=== PATIENT | female | born 1985 | race Caucasian/White ===

== ENCOUNTER 2016-12-26 21:27 | Emergency (ER) | payer MEDICAID, OTHER ==
[~2016-12-26 21:27] MED LIST: AMLO5TAB2 PO; CIME200 PO; CIPR500T4 PO; DIME50TA PO; ONDA4TAB7 PO
--- NOTE | 2016-12-26 22:21 | PD ---
HPI Chief Complaint Cramping and spotting Date Seen: Dec 26, 2016 Travel History International Travel<30 Days: No Contact w/Intl Traveler<30Days: No Known Affected Area: No History of Present Illness HPI Patient is a 31-year-old white female she is a at 16 to 17 weeks who presents complaining of cramping since without . She started spotting today. Denies heavy bleeding or leakage of fluid. She says she has felt the baby move. She goes to [facility] for care Para: 1 : 2 History Obstetric History Obstetric History 1 delivery in the past Social History Alcohol Use: No Tobacco Use: No Substance Abuse: No Allergies-Medications (Allergen,Severity, Reaction): Coded Allergies: No Known Allergies (Unverified , 07/15/16) Home Meds Active Scripts Amlodipine 5 Mg Tab5 Mg PO DAILY #30 TAB Ref 0 Prov:Aminah Joshi 12/16/16 Ciprofloxacin Hcl (Cipro)500 Mg [id number] Mg PO BID #20 TAB Prov:Kylah De La Torre MD 07/15/16 Reported Medications Cimetidine 200 mg (Tagamet 200 mg)200 Mg Tab1 Tab PO BID 07/15/16 Dimenhydrinate 50 Mg Tab50 Mg PO BID 05/07/16 Ondansetron (Ondansetron Odt)4 Mg Tab4 Mg PO ONCE #1 TAB 05/07/16 Review of Systems General / Constitutional: No: Fever, Weight Gain, Chills, Other Eyes: No: Diploplia, Blurred Vision, Visual changes, Pain, Photophobia HENT: No: Headaches, Vertigo, Lightheadedness Cardiovascular: No: Irregular Rhythm, Chest Pain or Discomfort, Palpitations, Tachycardia, Syncope, Varicosities, Edema, Cyanosis Respiratory: No: Cough, Short of Breath, Other Gastrointestinal: No: Nausea, Vomiting, Diarrhea Genitourinary: No: Decreased Urinary Output, Oliguria Musculoskeletal: No: Limited ROM, Weakness, Cramping, Edema, Pain Skin: No Rash, No Itching, No Dryness, No Lumps, No Change in Pigmentation, No Change in Nails, No Alopecia, No Lesions Neurologic: No: Weakness, Dizziness, Syncope, Focal Abnormalities, Coordination Problem, Headache, Slurred Speech, Seizures Psychiatric: No: Depression, Suicidal Ideations, Homicidal Ideation Endocrine: No: Heat Intolerance, Cold Intolerance, Polydipsia, Polyuria, Other Physical Exam Narrative GENERAL: Well-nourished, well-developed patient. SKIN: Warm and dry. HEAD: Normocephalic and atraumatic. EYES: No scleral icterus. No injection or drainage. ENT: No nasal drainage noted. Mucous membranes pink. Airway patent. NECK: Supple, trachea midline. No JVD. CARDIOVASCULAR: Regular rate and rhythm without murmurs, gallops, or rubs. RESPIRATORY: Breath sounds equal bilaterally. No accessory muscle use. BREASTS: Bilateral exam showed no masses , no retractions, no nipple discharge. ABDOMEN/GI: Abdomen soft, non-tender, bowel sounds present, no rebound, no guarding Gravid to [16-] weeks size Fundal Height: [-between symphysis and umb] GENITOURINARY: External Genitalia: intact and normal in appearance Vagina was examined with speculum is no blood or infection noted Cervix: [-Closed and thick] Dilatation: [-Closed] Effacement: [-] 0 Station: [-3] Presentation: [Vertex by ultrasound-] Membranes: [intact ] FHT's: 140s EXTREMITIES: No cyanosis or edema. BACK: Nontender without obvious deformity. No CVA tenderness. NEUROLOGICAL: Awake and alert. Motor and sensory grossly within normal limits. Five out of 5 muscle strength in all muscle groups. Normal speech. Data Data Labs Bedside ultrasound done by me shows a single intrauterine vertex 17 week 3 day size miotic fluid volume anterior grade 0 placenta active fetus noted with normal cardiac motion MDM Interpretation(s) This patient is a 31-year-old white female at 16-17 weeks followed by the [facility] which did not come here but to [facility], she complains of cramping essentially the whole that's unchanged that she noticed some spotting today more pink and red and want to come in and be checked. Her speculum exam and I was negative for any problem is no blood or leakage of fluid no discharge or infection seen cervix is closed and thick and noninflamed ultrasound shows normal 17 week 3 day size fetus normal amniotic fluid normal activity normal cardiac motion Plan Plan the patient to follow-up with her OB provider to rest as needed for pain she takes Fioricet for pain at home. Diagnosis Diagnosis: Primary Impression: Spotting affecting in second trimester Additional Impression: Abdominal pain affecting Disposition: 01 DISCHARGE HOME Condition: Stable Ben Marin II, MD Dec 26, 2016 22:21
== END 2016-12-26 22:28 | disposition home or self-care (01) ==
LOC: HOBED 21:27
DX: O26.852 Spotting complicating pregnancy, second trimester (principal); R10.9 Unspecified abdominal pain
CPT/HCPCS: 76815

== ENCOUNTER 2017-01-09 22:23 | Emergency (ER) | payer MEDICAID ==
--- NOTE | 2017-01-09 23:20 | PD ---
HPI Chief Complaint Back pain Date Seen: Jan 09, 2017 Travel History International Travel<30 Days: No Contact w/Intl Traveler<30Days: No Known Affected Area: No History of Present Illness HPI 31-year-old female who is at 18 weeks and 4 days complains of lower back pain specific to her left side in her hip region that started approximately 5 PM. Patient has been abnormal hospital for the past 4 hours where she was seen , evaluated, had a urinalysis performed and an ultrasound. Patient stated that she had waited around for quite a while in the emergency department and decided to leave because it was taking so long. She sees [facility] for her care and she has not had any complications. She has noted chronic hypertension and is on medication Para: 1 : 2 History Past Medical History Narrative Medical Chronic hypertension Obstetric History Obstetric History Spontaneous vaginal delivery Past Surgical History Narrative Surgical Cholecystectomy and right knee surgery Social History Alcohol Use: No Tobacco Use: Yes Substance Abuse: No Allergies-Medications (Allergen,Severity, Reaction): Coded Allergies: No Known Allergies (Unverified , 07/15/16) Home Meds Active Scripts Amlodipine 5 Mg Tab5 Mg PO DAILY #30 TAB Ref 0 Prov:Aminah Joshi 12/16/16 Ciprofloxacin Hcl (Cipro)500 Mg [id number] Mg PO BID #20 TAB Prov:Kylah De La Torre MD 07/15/16 Reported Medications Cimetidine 200 mg (Tagamet 200 mg)200 Mg Tab1 Tab PO BID 07/15/16 Dimenhydrinate 50 Mg Tab50 Mg PO BID 05/07/16 Ondansetron (Ondansetron Odt)4 Mg Tab4 Mg PO ONCE #1 TAB 05/07/16 Review of Systems Except as stated in HPI: all other systems reviewed are Neg Physical Exam Narrative GENERAL: Well-nourished, well-developed patient. SKIN: Warm and dry. HEAD: Normocephalic and atraumatic. EYES: No scleral icterus. No injection or drainage. ENT: No nasal drainage noted. Mucous membranes pink. Airway patent. NECK: Supple, trachea midline. No JVD. CARDIOVASCULAR: Regular rate and rhythm without murmurs, gallops, or rubs. RESPIRATORY: Breath sounds equal bilaterally. No accessory muscle use. BREASTS: Bilateral exam showed no masses , no retractions, no nipple discharge. ABDOMEN/GI: Abdomen soft, non-tender, bowel sounds present, no rebound, no guarding. Patient points to the left lower back almost in the gluteal region. There is no tenderness to palpation patient has normal range of motion of the back. Gravid to [18-] weeks size Fundal Height: [-] GENITOURINARY: Deferred FHT's: 139 by Doppler EXTREMITIES: No cyanosis or edema. BACK: Nontender without obvious deformity. No CVA tenderness. NEUROLOGICAL: Awake and alert. Motor and sensory grossly within normal limits. Five out of 5 muscle strength in all muscle groups. Normal speech. MDM Plan Patient 31 years old with what appears to be muscle skeletal discomfort. Of called over to [facility] and we've faxed over medical records release to get results of her previous testing. Patient has decided that she does not want to wait for the results, I've offered to send off a urinalysis that the patient has refused to stay and is insisting on discharge. I cautioned the patient that if she leaves now she will need to follow-up with her OB in order to get the results of her testing Diagnosis Diagnosis: Primary Impression: 18 weeks gestation of Additional Impression: Back pain affecting in second trimester Disposition: 01 DISCHARGE HOME Toshia Hassan MD Jan 09, 2017 23:19
== END 2017-01-09 23:27 | disposition home or self-care (01) ==
LOC: HOBED 22:23
DX: O26.892 Other specified pregnancy related conditions, second trimester (principal); Z3A.18 18 weeks gestation of pregnancy; M54.5 Low back pain; Z72.0 Tobacco use
CPT/HCPCS: 99283

== ENCOUNTER → 2017-02-04 | Outpatient (CLI) | payer MEDICAID | LOC: HPND 08:01 | PROVIDERS: ATTEND Obstetrics & Gynecology | DX: O35.1XX2 Maternal care for (suspected) chromosomal abnormality in fetus, fetus 2 (principal); Z3A.22 22 weeks gestation of pregnancy | CPT/HCPCS: 76811 ==

== ENCOUNTER 2017-12-11 17:36 | Emergency (ER) | payer SELFPAY ==
[~2017-12-11] VITALS: Ht 165.1 cm; Wt 100.0 kg
[2017-12-11 17:40] VITALS: BP 149/77; PULSE 100; RESP 18; TEMP 98.2; O2SAT 100
--- NOTE | 2017-12-11 18:25 | RADRPT ---
EXAM DATE/TIME: 12/11/2017 17:55 [facility] COMPARISON: No previous studies available for comparison. INDICATIONS : Shortness of breath. Cough. MEDICAL HISTORY : None. SURGICAL HISTORY : None. ENCOUNTER: Initial ACUITY: 1 week PAIN SCORE: 0/10 LOCATION: Bilateral chest FINDINGS: PA and lateral views of the chest demonstrate the lungs to be symmetrically aerated without evidence of mass, infiltrate or effusion. The cardiomediastinal contours are unremarkable. Osseous structure s are intact. CONCLUSION: No acute disease. Jimmy Dao MD on December 11, 2017 at 18:22 Board Certified Radiologist. This report was verified electronically.
== END 2017-12-11 19:36 | disposition left against medical advice (07) ==
LOC: NED 17:36
DX: R69 Illness, unspecified (principal); R06.02 Shortness of breath; R05 Cough; Z53.21 Procedure and treatment not carried out due to patient leaving prior to being seen by health care provider
CPT/HCPCS: 71046; 99281